=== PATIENT | male | born 1990 | race Caucasian/White ===

== ENCOUNTER 2019-12-08 08:47 | Inpatient (IN) ==
[2019-12-08] MEDS ORDERED: ZOFRAN IV PRN (14:55)
[2019-12-08] MEDS ORDERED: ZOFRAN IM PRN (14:55)
[2019-12-08] MEDS ORDERED: NICOTINE GUM BUCCAL PRN (14:55)
[2019-12-08] MEDS ORDERED: MOTRIN PO PRN (14:55)
[2019-12-08] MEDS ORDERED: SENOKOT PO PRN (14:55)
[2019-12-08] MEDS ORDERED: TUBERSOL ID ONE (14:55)
[2019-12-08] MEDS ORDERED: TYLENOL PO PRN (14:55)
[2019-12-08] MEDS ORDERED: IMODIUM PO PRN ×2 (14:55)
[2019-12-08] MEDS ORDERED: DESYREL PO PRN (14:55)
[2019-12-08] MEDS ORDERED: PHENOBARBITAL IV PRN (14:55)
[2019-12-08] MEDS ORDERED: D5W 1,000 ML IV PRN (14:55)
[2019-12-08] MEDS ORDERED: DULCOLAX PR PRN (14:55)
[2019-12-08] MEDS ORDERED: MAALOX PLUS LIQUID PO PRN (14:55)
[2019-12-08] MEDS ORDERED: ZOFRAN ODT PO PRN (14:55)
[2019-12-08] MEDS ORDERED: NICODERM PATCH TD PRN (14:55)
[2019-12-08 15:28] LABS: HEMATOCRIT 45.3 % (42.0-52.0); HEMOGLOBIN 15.3 g/dL (14.0-18.0); MCH 31.2 PG (27-31); MCHC 33.8 g/dL (33-37); MCV 92.4 FL (81-99); MPV 12.6 FL (7.4-10.4); RBC 4.9 XMIL (4.7-6.1); RDW 12.3 % (11.5-14.5); WBC 5.62 X1000 (4.8-10.8)
[2019-12-08 15:45] LABS: AGAP 12; ALBUMIN 4.5 g/dL (3.5-5.0); ALKALINE PHOSPHATASE 73 U/L (32-122); AMYLASE 60 U/L (20-200); BUN 10 mg/dL (8-22); CALCIUM 9.5 mg/dL (8.8-10.2); CHLORIDE 100 mmol/L (98-107); COSMO 274; CREATININE 0.9 mg/dL (0.7-1.2); ESTIMATED GFR > 60; GLUCOSE 83 mg/dL (70-104); GOT 70 U/L (10-34); GPT 119 U/L (10-44); LIPASE 28 U/L (13-60); POTASSIUM 4.2 mmol/L (3.5-5.1); SODIUM 138 mmol/L (136-145); TCO2 27 mmol/L (25-35); TOTAL PROTEIN 8.1 g/dL (6.3-8.3)
[2019-12-08 16:03] LABS: INR 0.93; PROTIME 12.9 Seconds (11.0-16.0)
[2019-12-08 17:01] LABS: URINE SOURCE CLEAN CATCH
[2019-12-08 17:08] LABS: BILIRUBIN URINE NEGATIVE (NEGATIVE); BLOOD URINE NEGATIVE (NEGATIVE); COLOR YELLOW; GLUCOSE URINE NEGATIVE (NEGATIVE); KETONE URINE NEGATIVE (NEGATIVE); LEUKOCYTES URINE NEGATIVE (NEGATIVE); NITRITE URINE NEGATIVE (NEGATIVE); PH URINE 7.5; PROTEIN URINE NEGATIVE (NEGATIVE); SP GRAVITY URINE 1.013; TURBIDITY URINE CLEAR (CLEAR); UROBILINOGEN URINE 3 mg/dL (NORMAL)
[2019-12-08 17:11] LABS: UR EPITHELIAL CELLS <10 /HPF (<10); URINE BACTERIA NEGATIVE /HPF; URINE RBC <10 /HPF (<10); URINE WBC <10 /HPF (<10)
[2019-12-08 17:17] LABS: URINE CASTS NONE SEEN; URINE CRYSTALS NONE SEEN; URINE SMALL ROUND CELLS NONE SEEN; URINE YEAST NONE SEEN
[2019-12-08 17:32] LABS: UR AMPHETAMINES QUAL NONE DETECTED (NONE DETECT); UR BARBITUATES QUAL NONE DETECTED (NONE DETECT); UR BENZODIAZEPIN QUAL NONE DETECTED (NONE DETECT); UR CANNABINOIDS QUAL PRESUMPTIVE POSITIVE (NONE DETECT); UR COCAINE QUAL NONE DETECTED (NONE DETECT); UR METHADONE QUAL NONE DETECTED (NONE DETECT); UR METHAMPHETAMINE QUAL NONE DETECTED (NONE DETECT); UR OPIATES QUAL PRESUMPTIVE POSITIVE (NONE DETECT); UR OXYCODONE QUAL NONE DETECTED (NONE DETECT); UR PCP QUAL NONE DETECTED (NONE DETECT); UR PROPOXYPHENE QUAL NONE DETECTED (NONE DETECT); UR TCA QUAL NONE DETECTED (NONE DETECT)
[2019-12-08] MEDS ORDERED: BENTYL PO PRN (17:40)
[2019-12-08] MEDS ORDERED: ATARAX PO PRN (17:40)
[2019-12-08] MEDS ORDERED: ROBAXIN PO PRN (17:40)
[2019-12-08] MEDS ORDERED: SINEMET 25/100 PO PRN (17:40)
[2019-12-08] MEDS ORDERED: SUBOXONE 2 MG/0.5 MG FILM SL SCH (18:00)
--- NOTE | 2019-12-08 19:26 | HISTORY AND PHYSICAL ---
CHIEF COMPLAINT: Nausea and vomiting. HISTORY OF PRESENT ILLNESS: The patient is a 29-year-old male who presented to [facility] secondary to nausea, vomiting, abdominal pain. He has been using and abusing heroin. He has having significant withdrawal symptoms. SOCIAL HISTORY: Patient is employed at [employer]. Lives at home in [place]. PAST MEDICAL HISTORY: History of gout, chronic anxiety, depression, history of methicillin- resistant Staphylococcus aureus in the past. MEDICATIONS: He is on no current medications. ALLERGIES: None. REVIEW OF SYSTEMS: CINA score is elevated at 12 secondary to nausea, abdominal pain, chills, vomiting, myalgias, frequent watery eyes, runny nose, frequent sweating episodes, moderately restless, insomnia. Denies fevers. Denies cough. Denies headaches, blurred vision, change in vision. Denies any focalized numbness or weakness in his extremities. Denies dysuria, frequency, urgency. SUBSTANCE USE AND ABUSE: The patient was in [facility] in 2011, [facility] for 30 days in October 2015, [facility] in October 2015. Notes that he completed all 3 courses. However, he started abusing again. States that he has been arrested in the past for possession. He has had financial and work problems due to use. States that he started marijuana at age 18, currently uses 1 to 2 times a week. Started opiates at 21. Started with oxycodone and has progressed to IV heroin 3 to 6 times a week for the past 6 months. FAMILY HISTORY: Noncontributory. PHYSICAL EXAMINATION: VITAL SIGNS: Reviewed. The patient is awake, and in no distress. He is pleasant. HEENT: Normocephalic. NECK: Supple. CARDIOVASCULAR: Regular rate. CHEST: Clear. ABDOMEN: Soft. EXTREMITIES: Moves all extremities. NEUROLOGIC: No focal changes. SKIN: Warm, dry. No rashes. ASSESSMENT: 1. Nausea and vomiting. 2. Abdominal pain. 3. Myalgias. 4. Paresthesias. 5. Paroxysmal sweating. 6. Opiate abuse withdrawal and stabilization. PLAN: We are going to admit the patient to the hospital, place him on Suboxone. We will taper down as tolerated. Discussed with patient the use of medication assisted therapy, i.e. Suboxone versus naltrexone as an outpatient. We will continue to follow. cc: William Snow MD
[2019-12-08] MEDS: SEROQUEL PO PRN (21:06)
[2019-12-09] MEDS: LIBRIUM PO PRN ×2 (06:04→18:35)
[2019-12-09] MEDS: PROTONIX PO SCH (06:32)
[2019-12-09] MEDS: SUBOXONE 2 MG/0.5 MG FILM SL SCH ×2 (06:32→18:31)
[2019-12-09] MEDS: THERA M PLUS PO SCH (08:32)
[2019-12-09] MEDS: VITAMIN B-1 PO SCH (08:32)
[2019-12-09] MEDS: FOLIC ACID PO SCH (08:32)
[2019-12-09] MEDS: ATARAX PO PRN ×2 (08:39→23:27)
--- NOTE | 2019-12-09 22:24 | PROGRESS NOTE ---
DATE: 12/09/2019 SUBJECTIVE: Patient notes he is feeling okay. Denies any fevers, chills. Denies cough, congestion. Denies dysuria, frequency. PHYSICAL EXAMINATION: General: He is awake, alert. He is in no distress. Vital Signs: Reviewed. Blood pressure is stable. He is afebrile. HEENT: Normocephalic. Neck: Supple. Cardiovascular: Regular rate. Chest: Clear. Abdomen: Soft. Extremities: Moves all extremities. Neurologic: No focal changes. ASSESSMENT: 1. Nausea, vomiting. 2. Abdominal pain. 3. Myalgias. 4. Paresthesias. 5. Paroxysmal sweating. 6. Opiate abuse withdrawal and stabilization. PLAN: 1. We will continue patient in the hospital. 2. Continue 4 mg Suboxone. 3. We will continue counseling. 4. We will continue to wean as tolerated. 5. Further orders as needed. cc: William Snow MD
[2019-12-09] MEDS: SEROQUEL PO PRN (23:27)
[2019-12-10] MEDS: PROTONIX PO SCH (06:29)
[2019-12-10] MEDS: SUBOXONE 2 MG/0.5 MG FILM SL SCH ×2 (06:29→18:14)
[2019-12-10] MEDS: FOLIC ACID PO SCH (09:24)
[2019-12-10] MEDS: VITAMIN B-1 PO SCH (09:24)
[2019-12-10] MEDS: THERA M PLUS PO SCH (09:24)
[2019-12-10] MEDS: SEROQUEL PO PRN (20:28)
--- NOTE | 2019-12-10 23:05 | PROGRESS NOTE ---
DATE: 12/10/2019 SUBJECTIVE: Overall, patient notes that he is feeling better. Still having some muscle aches but overall is improving. Denies any fevers, chills. Denies cough, congestion. PHYSICAL EXAMINATION: Vital Signs: Reviewed and stable. General: Patient is awake, alert. She is in no current respiratory distress. HEENT: Normocephalic. Neck: Supple. Cardiovascular: Regular rate. Chest: Clear. Abdomen: Soft. Extremities: Moves all extremities. Neurologic: No focal neurological changes. Skin: Warm and dry. No rashes. ASSESSMENT: 1. Nausea, vomiting. 2. Abdominal pain. 3. Myalgias. 4. Paresthesias. 5. Paroxysmal sweating. 6. Opiate abuse, withdrawal and stabilization. PLAN: We are going to continue to attempt to wean patient's Suboxone. Hopefully can wean off and discharge home in the morning if he tolerates. cc: William Snow MD
[2019-12-11] MEDS: PROTONIX PO SCH (06:06)
[2019-12-11] MEDS: SUBOXONE 2 MG/0.5 MG FILM SL SCH (06:06)
[2019-12-11] MEDS: FOLIC ACID PO SCH (09:10)
[2019-12-11] MEDS: THERA M PLUS PO SCH (09:10)
[2019-12-11] MEDS: VITAMIN B-1 PO SCH (09:10)
[2019-12-11 16:13] VITALS: BP 121/77
[2019-12-11] MEDS ORDERED: SUBUTEX SL ONE (18:00)
--- NOTE | 2019-12-12 06:03 | DISCHARGE SUMMARY ---
ADMISSION DATE: 12/08/2019 DISCHARGE DATE: 12/11/2019 DISCHARGE DIAGNOSIS: 1. Nausea, vomiting. 2. Abdominal pain. 3. Myalgias. 4. Paresthesias. 5. Paroxysmal sweating. 6. Opiate abuse, withdrawal and stabilization. CONSULTATIONS: None. PROCEDURES: None. BRIEF HOSPITAL COURSE: The patient was admitted to the hospital, treated in the usual fashion, placed on Suboxone taper. We did taper down to 1 mg Subutex prior to discharge. Each day counseling was performed by myself. On discharge, patient is awake, alert, currently in no distress. Overall is feeling better. Discussed with patient that he should consider medication assisted therapy. Prescription for naltrexone was written. Discussed that he has recently been on opiates, i.e. Suboxone, should wait 3 days and then take 1/2 tablet of naltrexone assuming this should not make him worse. Assuming it does not, we will do a half dose the next day and then followed by a full dose daily. Discussed Vivitrol as opposed to naltrexone. Also discussed should he start having worsening symptoms, he may need to consider Suboxone itself. TIME: Greater than 30 minutes was spent in total care. cc: William Snow MD
[2019-12-12] MEDS ORDERED: SUBUTEX SL SCH (09:00)
== END 2019-12-11 18:54 | disposition home or self-care (01) | DRG 897 ==
LOC: P.MEDSURG 14:37
PROVIDERS: ADMIT Family Medicine; ATTEND Family Medicine